=== PATIENT | male | born 1965 | race Caucasian/White ===

== ENCOUNTER 2020-06-26 16:21 | Emergency (ER) | payer MEDICARE, OTHER ==
[2020-06-26 16:28] VITALS: BP 144/93; PULSE 90; RESP 18; TEMP 98.5
--- NOTE | 2020-06-26 16:59 | ED ---
General Adult HPI - General Chief complaint: Neuro Symptoms/Deficit Stated complaint: rt sided facial droop Time Seen by Provider: 06/26/20 16:38 Source: patient Mode of arrival: ambulatory Limitations: no limitations - History of Present Illness Initial comments: Dictation was produced using Smartj[employer] dictation software. please excuse any grammatical, word or spelling errors. This patient was cared for during a federal and state declared state of emergency secondary to Covid 19 Chief Complaint: 54-year-old male past medical history of Storm palsy, HIV presents today with right facial weakness History of Present Illness: 54-year-old male who has past medical history of Storm palsy. 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 Patient states his symptoms began on Friday of last week. He did not seek medical attention because he thought it would go away. Patient has history of HIV. He does not take his antivirals. He states he had his CD4 count last checked months ago when it was 796. He does have an infectious disease doctor however he does not take his antivirals because he gets diarrhea every time he takes it. He is given referral with infectious disease doctor Dr. Luna at [facility]. Complains of right upper and lower facial weakness. He does have watering of the right eye. Patient has been referred to ENT doctor however has not followed up. The ROS documented in this emergency department record has been reviewed and confirmed by me. Those systems with pertinent positive or negative responses have been documented in the HPI. All other systems are other negative and/or noncontributory. PHYSICAL EXAM: General Impression: Alert and oriented x3, not in acute distress HEENT: Normocephalic atraumatic, extra-ocular movements intact, pupils equal and reactive to light bilaterally, mucous membranes moist. Cardiovascular: Heart regular rate and rhythm Chest: Able to complete full sentences, no retractions, no tachypnea Abdomen: abdomen soft, non-tender, non-distended, no organomegaly Musculoskeletal: Pulses present and equal in all extremities, no peripheral edema Motor: no focal deficits noted Neurological: CN II-XII grossly intact, no focal motor or sensory deficits noted, right upper and lower facial weakness Skin: Intact with no visualized rashes Psych: Normal affect and mood ED course: 54-year-old male presents with clinical presentation consistent with Storm palsy. Patient has history of HIV. 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 Patient has no other complaints at this time. No indication for further imaging or lab evaluation at this time. Patient given instructions on proper eye care. He is given prescription for eye drops, eye ointment, steroids and antivirals. Patient given outpatient follow-up with ear nose and throat physician. Also told to follow-up with his primary care physician. - Related Data Previous Rx's Medication Instructions Recorded Artificial Tears-Hypromellose 1 drops LEFT EYE TID #1 bottle 06/26/20 [Artificial Tear Drops] Erythromycin Ophth Oint [Romycin 1 applic LEFT EYE DAILY #1 bottle 06/26/20 Ophth Oint] predniSONE 80 mg PO DAILY 7 Days #14 tab 06/26/20 valACYclovir HCL [Valtrex] 1,000 mg PO DAILY 7 Days #7 tablet 06/26/20 Allergies Allergy/AdvReac Type Severity Reaction Status Date / Time No Known Allergies Allergy Verified 06/26/20 16:28 Review of Systems ROS Statement: Those systems with pertinent positive or pertinent negative responses have been documented in the HPI. ROS Other: All systems not noted in ROS Statement are negative. Past Medical History Past Medical History: No Reported History Additional Past Medical History / Comment(s): bells palsy History of Any Multi-Drug Resistant Organisms: None Reported Past Surgical History: No Surgical Hx Reported Past Psychological History: Anxiety, Bipolar Smoking Status: Current every day smoker Past Alcohol Use History: Occasional Past Drug Use History: Marijuana General Exam Limitations: no limitations Course Vital Signs 06/26/20 16:25 Temperature 98.5 F Pulse Rate 90 Respiratory 18 Rate Blood Pressure 144/93 O2 Sat by Pulse 98 Oximetry Disposition Clinical Impression: Storm palsy Disposition: HOME SELF-CARE Condition: Good Instructions (If sedation given, give patient instructions): Storm Palsy (ED) Additional Instructions: you're diagnosed with Storm palsy 1. Most important issue is proper corneal care. You are advised to use eyedrops 4 times daily while awake. 2. Please apply ointment prior to going to bed. Tape the eye shut and apply eye protection to prevent corneal injuryas instructed by nurse prior to disc harge. 3. Given prescriptions for eye drops, eye ointment, steroids and antivirals. Please begin using these medications soon as possible. 4. You're given referral to ear nose and throat doctor considering this is been an ongoing issue. He would benefit from further Storm palsy workup. 5. Please follow-up with infectious disease doctors as soon as possible to reinitiate antiviral treatment for HIV. Prescriptions: Artificial Tears-Hypromellose [Artificial Tear Drops] 1 drops LEFT EYE TID #1 bottle predniSONE 80 mg PO DAILY 7 Days #14 tab Erythromycin Ophth Oint [Romycin Ophth Oint] 1 applic LEFT EYE DAILY #1 bottle valACYclovir HCL [Valtrex] 1,000 mg PO DAILY 7 Days #7 tablet Is patient prescribed a controlled substance at d/c from ED?: No Referrals: Chidi Dumont MD [STAFF PHYSICIAN] - 1-2 days Time of Disposition: 16:59
== END 2020-06-26 17:28 | disposition home or self-care (01) ==
LOC: EC 16:21
DX: G51.0 Bell's palsy (principal); Z21 Asymptomatic human immunodeficiency virus [HIV] infection status; F17.200 Nicotine dependence, unspecified, uncomplicated
CPT/HCPCS: 99283

== ENCOUNTER → 2023-12-01 | Outpatient (CLI) | payer OTHER, MEDICARE ==
[2023-12-02 01:33] LABS: Basophils # (A) 0.05 X 10*3/uL (0.00-0.10); Basophils % (A) 0.5 %; Eosinophils # (A) 0.04 X 10*3/uL (0.04-0.35); Eosinophils % (A) 0.4 %; HCT 48.9 % (39.6-50.0); HGB 16.7 g/dL (13.0-17.0); Lymphocytes # (A) 2.61 X 10*3/uL (0.90-5.00); Lymphocytes % (A) 25.4 %; MCH 30.6 pg (27.0-32.0); MCHC 34.2 g/dL (32.0-37.0); MCV 89.7 FL (80.0-97.0); Mean Platelet Volume 11.6 FL (9.5-12.2); Monocytes % (A) 7.8 %; NRBC Per 100 WBC 0 X 10*3/uL (0.00-0.01); Neutrophils # (A) 6.68 X 10*3/uL (1.80-7.70); Platelet Count 246 X 10*3/uL (140-440); RBC 5.45 X 10*6/uL (4.40-5.60); RDW 12.9 % (11.5-14.5); WBC 10.27 X 10*3/uL (4.50-10.00)
[2023-12-02 02:00] LABS: ALT 27 U/L (10-49); AST 21 U/L (14-35); Albumin 4.8 g/dL (3.8-4.9); Albumin/Globulin Ratio 1.66 Ratio (1.60-3.17); Alkaline Phosphatase 91 U/L (41-126); BUN/Creat Ratio 13.67 Ratio (12.00-20.00); Blood Urea Nitrogen 12.3 mg/dL (9.0-27.0); Carbon Dioxide 27.4 mmol/L (21.6-31.8); Chloride 101 mmol/L (96-109); Globulin 2.9 g/dL (1.6-3.3); Glucose 104 mg/dL (70-110); Potassium 4.5 mmol/L (3.5-5.5); Sodium 139 mmol/L (135-145); Total Bilirubin 0.9 mg/dL (0.3-1.2); Total Protein 7.7 g/dL (6.2-8.2)
[2023-12-02 10:20] LABS: T Helper Cell (CD4) 870 cell/ul (443-1471); T Helper Cell (CD4) % 27 % (35-66); T Suppressor Cell (CD8) 2377 cell/ul (190-832); T Suppressor Cell (CD8) % 74 % (9-37); T4/T8 Ratio (CD4:CD8) 0.4 (1.0-3.7)
[2023-12-02 10:41] LABS: HIV-1 RNA DETECTED (Not detected)
== END | disposition home or self-care (01) ==
LOC: LABWHC1 16:03
PROVIDERS: ATTEND Internal Medicine Infectious Disease
DX: B20 Human immunodeficiency virus [HIV] disease (principal)
CPT/HCPCS: 36415; 80053; 85025; 86360; 87535

== ENCOUNTER 2024-08-04 19:50 | Outpatient (CLI) | payer MEDICARE ==
--- NOTE | 2024-08-10 00:07 | P.PCN ---
Date of Procedure: 08/04/24 Operative Findings: Polysomnography report Date of service is 08/04/2024 Pertinent history 59-year-old male patient diagnosed having obstructive sleep apnea a few years back and no follow-up has been done on this patient. The patient came to my office due to concerns of obstructive sleep apnea. He reported snoring and he reported waking up occasionally choking and gasping for air. He has limited hypersomnia and sleepiness. Based on that, I polysomnography was ordered. He is history of smoking. His FEV1 is noted of 96% of predicted and his diffusion capacity is 86% of predicted. His comorbidities include hypertension hyperlipidemia and previous history of HIV along with diverticulosis. Pertinent physical findings The weight is 196 pounds with a body mass index of 28.9 Technical description The patient was studied using a standard complex polysomnography protocol that included recording of the Lead II EKG, Central, occipital and frontal EEG, right and left outer canthus EOG, submental EMG, right and left anterior tibialis EMG, respiratory airflow by thermocouple and or pressure/flow transducer, respiratory efforts by abdominal and thoracic PVDF belts, oxygen saturation by cable oximetry. Position by observation synchronized the PSG. Equipment used: [employer]. Sleep architecture The total recording time was 421.5 minutes. The total sleep time was 341.0 minutes. The patient's overall sleep efficiency was 80.9%. The latency to sleep onset was 29.5 minutes. The latency to REM sleep was 102.5 minutes. The sleep architecture was catheterized by 6.5% stage I, 66.7% stage II, 5.9% stage III and a total of 21% REM sleep. The total arousal index was 12.3. The wake after sleep onset time was 51 minutes Respiratory analysis The sleep study showed a total of 3 obstructive events of which 0 were obstructive apneas, 0 were mixed apneas and 3 were obstructive hypopneas and the resulting apnea-hypopnea index was 0.5. The central apnea index was 0. Respiratory arousal index was 0.2. The baseline pulse ox was 95% while awake and the lowest oxygen saturation during sleep was 91% and the minimum pulse ox during sleep was 93% during REM sleep. No significant desaturations below 89%. Sleep continuity summary There was a total of 70 arousals with an index of 12.3 and the respiratory arousal index was 0.2 Periodic limb movement summary The sleep study showed a total of 49 periodic limb movement activity with an index of 8.6. In addition, there was a total of 22 periodic limb movement with arousals with an index of 3.9 Cardiac summary Average heart rate was 57 with a minimum heart rate of 54 and the maximum heart rate of 62 Assessment Primary snoring without any significant sleep breathing disorder the patient's AHI was 0.5. No significant obstructive or central respiratory events. No significant nocturnal oxygen desaturations. Overall sleep efficiency of 80.9%, slightly diminished Adequate sleep architecture Low arousal index Hypertension Hyperlipidemia Plan This is a negative study for sleep apnea. No significant sleep breathing disord er. The patient will be reassured Maintain good sleep hygiene measures Maintain regular sleep schedule Treat comorbidities No need for CPAP therapy Encourage weight loss Follow-up with the primary care.
== END 2024-08-05 06:05 | disposition home or self-care (01) ==
LOC: 3 N SLEEP 19:50
PROVIDERS: ATTEND Internal Medicine Critical Care Medicine
DX: R06.83 Snoring (principal); I10 Essential (primary) hypertension; E78.5 Hyperlipidemia, unspecified; B20 Human immunodeficiency virus [HIV] disease; Z87.19 Personal history of other diseases of the digestive system
CPT/HCPCS: 95810

== ENCOUNTER → 2024-09-08 | Outpatient (CLI) | payer MEDICARE, OTHER ==
[2024-09-08 19:54] LABS: ALT 18 U/L (10-49); AST 18 U/L (14-35); Albumin 4.6 g/dL (3.8-4.9); Alkaline Phosphatase 76 U/L (41-126); BUN/Creat Ratio 12.88 Ratio (12.00-20.00); Blood Urea Nitrogen 10.3 mg/dL (9.0-27.0); Calcium 9.1 mg/dL (8.7-10.3); Carbon Dioxide 24.9 mmol/L (21.6-31.8); Chloride 103 mmol/L (96-109); Globulin 2.3 g/dL (1.6-3.3); Glucose 105 mg/dL (70-110); Sodium 139 mmol/L (135-145); Total Bilirubin 0.7 mg/dL (0.3-1.2); Total Protein 6.9 g/dL (6.2-8.2)
[2024-09-08 20:11] LABS: Basophils # (A) 0.03 X 10*3/uL (0.00-0.10); Basophils % (A) 0.4 %; Eosinophils # (A) 0.12 X 10*3/uL (0.04-0.35); Eosinophils % (A) 1.5 %; HCT 45.4 % (39.6-50.0); HGB 15.8 g/dL (13.0-17.0); Lymphocytes # (A) 2.18 X 10*3/uL (0.90-5.00); MCH 29.7 pg (27.0-32.0); MCHC 34.8 g/dL (32.0-37.0); MCV 85.3 FL (80.0-97.0); Mean Platelet Volume 11.4 FL (9.5-12.2); Monocytes # (A) 0.56 X 10*3/uL (0.20-1.00); Monocytes % (A) 7.2 %; NRBC Per 100 WBC 0 X 10*3/uL (0.00-0.01); Neutrophils # (A) 4.83 X 10*3/uL (1.80-7.70); Neutrophils % (A) 62.1 %; Platelet Count 248 X 10*3/uL (140-440); RBC 5.32 X 10*6/uL (4.40-5.60); RDW 12.7 % (11.5-14.5); WBC 7.78 X 10*3/uL (4.50-10.00)
[2024-09-09 09:51] LABS: HIV-1 RNA DETECTED (Not detected); HIV-1 RNA, Quant <20 Copies/mL (<20); LOG HIV Copies/mL <1.30 (<1.30)
[2024-09-09 13:36] LABS: T4/T8 Ratio (CD4:CD8) 0.6 (1.0-3.7)
== END | disposition home or self-care (01) ==
LOC: LABWHC1 14:11
PROVIDERS: ATTEND Internal Medicine Infectious Disease
DX: B20 Human immunodeficiency virus [HIV] disease (principal)
CPT/HCPCS: 36415; 80053; 85025; 86360; 87536

== ENCOUNTER → 2025-03-14 | Outpatient (CLI) | payer MEDICARE, OTHER ==
[2025-03-14 20:04] LABS: Basophils # (A) 0.03 X 10*3/uL (0.00-0.10); Basophils % (A) 0.4 %; Eosinophils # (A) 0.15 X 10*3/uL (0.04-0.35); Eosinophils % (A) 2.1 %; HCT 46.1 % (39.6-50.0); HGB 15.7 g/dL (13.0-17.0); Immature Grans, Automated 0.80 %; Lymphocytes # (A) 2.23 X 10*3/uL (0.90-5.00); Lymphocytes % (A) 30.8 %; MCH 29.5 pg (27.0-32.0); MCHC 34.1 g/dL (32.0-37.0); MCV 86.5 FL (80.0-97.0); Monocytes # (A) 0.63 X 10*3/uL (0.20-1.00); Monocytes % (A) 8.7 %; NRBC Per 100 WBC 0 X 10*3/uL (0.00-0.01); Neutrophils # (A) 4.14 X 10*3/uL (1.80-7.70); Neutrophils % (A) 57.2 %; Platelet Count 238 X 10*3/uL (140-440); RBC 5.33 X 10*6/uL (4.40-5.60); RDW 12.6 % (11.5-14.5); WBC 7.24 X 10*3/uL (4.50-10.00)
[2025-03-14 20:38] LABS: ALT 19 U/L (10-49); AST 22 U/L (14-35); Albumin 4.4 g/dL (3.8-4.9); Albumin/Globulin Ratio 1.91 Ratio (1.60-3.17); Alkaline Phosphatase 78 U/L (41-126); Anion Gap 11.90 mmol/L (4.00-12.00); BUN/Creat Ratio 12.12 Ratio (12.00-20.00); Blood Urea Nitrogen 9.7 mg/dL (9.0-27.0); Calcium 9.1 mg/dL (8.7-10.3); Carbon Dioxide 24.1 mmol/L (21.6-31.8); Chloride 104 mmol/L (96-109); Globulin 2.3 g/dL (1.6-3.3); Glucose 111 mg/dL (70-110); Potassium 4.0 mmol/L (3.5-5.5); Sodium 140 mmol/L (135-145); Total Protein 6.7 g/dL (6.2-8.2)
[2025-03-15 00:29] LABS: HIV 2 AB Non-Reactive (Non-Reactive); HIV AB P24 Reactive (Non-Reactive); HIV P24 AG Non-Reactive (Non-Reactive)
[2025-03-15 13:07] LABS: T Helper Cell (CD4) 964.0 cell/ul (443-1471); T Helper Cell (CD4) % 38.0 % (35-66); T Suppressor Cell (CD8) 1656.0 cell/ul (190-832); T Suppressor Cell (CD8) % 65.0 % (9-37); T4/T8 Ratio (CD4:CD8) 0.6 (1.0-3.7)
== END | disposition home or self-care (01) ==
LOC: LABWHC1 15:13
PROVIDERS: ATTEND Internal Medicine Infectious Disease
DX: B20 Human immunodeficiency virus [HIV] disease (principal)
CPT/HCPCS: 36415; 80053; 85025; 86360; 87390